=== PATIENT | male | born 1965 | race Caucasian/White ===

== ENCOUNTER 2020-03-06 12:06 | Emergency (ER) | payer BC, OTHER ==
[~2020-03-06] VITALS: Ht 188 cm; Wt 113.4 kg
== END 2020-03-06 16:20 | disposition home or self-care (01) ==
LOC: ER1 12:06
DX: U07.1 COVID-19 (principal); I25.2 Old myocardial infarction; I25.10 Atherosclerotic heart disease of native coronary artery without angina pectoris; E11.9 Type 2 diabetes mellitus without complications; Z79.84 Long term (current) use of oral hypoglycemic drugs; Z88.8 Allergy status to other drugs, medicaments and biological substances
CPT/HCPCS: 99283; M0239

== ENCOUNTER → 2020-07-18 | Outpatient (CLI) | payer BC, OTHER | LOC: KOH-I 10:07 | DX: R10.11 Right upper quadrant pain (principal); K76.0 Fatty (change of) liver, not elsewhere classified | CPT/HCPCS: 76705 ==

== ENCOUNTER → 2020-08-05 | Outpatient (CLI) | payer BC, OTHER | LOC: NM 13:00 | DX: R10.11 Right upper quadrant pain (principal); R94.8 Abnormal results of function studies of other organs and systems | CPT/HCPCS: 78226; A9537 ==

== ENCOUNTER → 2020-09-27 | Outpatient (CLI) | payer BC ==
[~2020-09-27] MED LIST: COLACE100 MG PO; FLOMAX 0.4 MG0.4 MG PO; HYDROCODON-ACE1 EAC2 PO; HYDROXYZINE PAM25 MG PO; METFORMIN HCL500 M2 PO; METOPROLOL SUCC25 MG PO; VOLTAREN EC 7575 MG PO; ZETIA10 MG PO
[2020-09-27 15:00] LABS: BUN/CREATININE RATIO 19 (0-10)
== END ==
LOC: OPSV2 12:58
PROVIDERS: Anesthesiology
DX: Z01.818 Encounter for other preprocedural examination (principal); R94.31 Abnormal electrocardiogram [ECG] [EKG]
CPT/HCPCS: 80048; 93005

== ENCOUNTER → 2020-09-30 | Day surgery (SDC) | payer BC ==
[~2020-09-30] VITALS: Ht 188 cm; Wt 122.5 kg
== END | disposition home or self-care (01) ==
LOC: OR 06:49
DX: K80.10 Calculus of gallbladder with chronic cholecystitis without obstruction (principal); K82.8 Other specified diseases of gallbladder; I10 Essential (primary) hypertension; E78.5 Hyperlipidemia, unspecified; E66.01 Morbid (severe) obesity due to excess calories; F41.9 Anxiety disorder, unspecified; F32.9 Major depressive disorder, single episode, unspecified; I25.2 Old myocardial infarction; G43.909 Migraine, unspecified, not intractable, without status migrainosus; M19.90 Unspecified osteoarthritis, unspecified site; J30.9 Allergic rhinitis, unspecified; G47.9 Sleep disorder, unspecified; F17.210 Nicotine dependence, cigarettes, uncomplicated; Z79.82 Long term (current) use of aspirin; Z79.84 Long term (current) use of oral hypoglycemic drugs; Z79.899 Other long term (current) drug therapy; Z88.5 Allergy status to narcotic agent; Z88.8 Allergy status to other drugs, medicaments and biological substances; Z20.822 Contact with and (suspected) exposure to COVID-19; Z87.01 Personal history of pneumonia (recurrent)
CPT/HCPCS: J0690; J1100; J1885; J2001; J2250; J2405; J2704; J2710; J3010; J7030; J7120